=== PATIENT | male | born 1995 | race Caucasian/White ===

== ENCOUNTER 2017-06-06 14:15 | Emergency (ER) | payer BC, OTHER ==
[~2017-06-06] VITALS: Ht 172.7 cm; Wt 72.6 kg
--- NOTE | 2017-06-06 14:15 | NUR ---
Patient arrived via BLS ambulance with compliant of vomiting and anxiety after drinking all night last night. Patient reports that he was breathing very quickly, feeling SOB and then had carpal pedal spasms and numbness on his face. Patient educated on alchol abuse. Patient vomited an immeasurably small amount of clear emsis. Patient to ER [facility] 1 to gown for evaluation. Side rails up. Assumed care of patient.
[2017-06-06 14:26] VITALS: BP_SYST 128
[2017-06-06] MEDS ORDERED: ONDANSETRON HCL 4 MG/2 ML VIAL IVP ONE (15:00)
[2017-06-06] MEDS ORDERED: DIPHENHYDRAMINE INJ 50 MG/ML VIAL IVP ONE (15:00)
[2017-06-06] MEDS ORDERED: LORazepam 2 MG/ML VIAL (FOR ER USE) IVP ONE (15:00)
--- NOTE | 2017-06-06 15:00 | NUR ---
ER Dr. Joshi at bedside examining patient.
--- NOTE | 2017-06-06 16:15 | NUR ---
Patient feels improved.
--- NOTE | 2017-06-06 16:50 | NUR ---
Patient given written and verbal discharge instructions and verbalizes understanding. ER MD discussed with patient the results and treatment provided. Patient in stable condition. ID arm band removed. IV catheter removed intact and dressing applied, no active bleeding. Rx of Ativan, Zofran given. Patient educated on pain management and to follow up with PMD. Pain Scale 0/10. Opportunity for questions provided and answered. Patient feels improved and was able to tolerate 100mL H2O. Patient was unwilling to wait for security to locate pants.
== END 2017-06-06 16:50 | disposition home or self-care (01) ==
LOC: SED 14:15
DX: F41.9 Anxiety disorder, unspecified (principal)
CPT/HCPCS: 96374; 96375; 99284; J1200; J2060; J2405